=== PATIENT | female | born 1975 | race Hispanic/Latino ===

== ENCOUNTER 2021-03-23 17:22 | Inpatient (IN) | payer OTHER ==
[~2021-03-23] VITALS: Ht 154.9 cm; Wt 107.5 kg
[2021-03-23 17:59] LABS: BASOPHILS % (AUTO) 0.5 % (0.0-5.0); EOSINOPHILS % (AUTO) 1.3 % (0.0-8.0); LYMPHOCYTES % (AUTO) 18.9 % (21.0-51.0); MEAN CORPUSCULAR HGB CONC 32.1 g/dL (32.0-36.0); MEAN CORPUSCULAR VOLUME 84.1 fL (79-99); NEUTROPHILS % (AUTO) 72.3 % (40.0-77.0); PLATELET COUNT (AUTO) 335 K/uL (130-400); RED BLOOD CELL COUNT(AUTO) 4.52 MIL/uL (4.00-5.50); RED CELL DISTRIBUTION WIDTH 14.2 % (11.0-15.5); WHITE BLOOD COUNT (AUTO) 15.2 K/uL (4.8-10.8)
[2021-03-23] MEDS ORDERED: ONDANSETRON 4MG INJ IVP ONE (18:00)
[2021-03-23] MEDS ORDERED: MORPHINE 2 MG SYG IVP ONE (18:00)
[2021-03-23] MEDS ORDERED: FAMOTIDINE 20MG VIAL IV ONE (18:00)
[2021-03-23 18:01] LABS: APPEARANCE,URINE Clear (CLEAR); BILIRUBIN,URINE Negative (NEGATIVE); COLOR,URINE Yellow (YELLOW); GLUCOSE, URINE (UA) Negative (NEGATIVE); KETONES,URINE Negative (NEGATIVE); LEUKOCYTE ESTERASE ,URINE Trace (NEGATIVE); NITRATE,URINE Negative (NEGATIVE); OCCULT BLOOD,URINE Negative (NEGATIVE); PH,URINE 5.5 (5.0-8.0); PROTEIN,URINE Negative (NEGATIVE)
[2021-03-23 18:03] LABS: HCG,QUAL RESULT NEGATIVE (NEGATIVE)
[2021-03-23 18:10] LABS: CREATININE 0.9 mg/dL (0.5-1.5); POTASSIUM 3.9 mmol/L (3.5-5.1)
[2021-03-23 18:10] LABS: BACTERIA,URINE Few /HPF (None Seen); MUCUS,URINE Rare LPF (None Seen); SQUAMOUS EPITHELIAL CELL,UR Few /HPF (0-2)
[2021-03-23 18:19] LABS: ALBUMIN 3.3 g/dL (3.5-5.0); BILIRUBIN,TOTAL 0.2 mg/dL (0.2-1.0); TOTAL PROTEIN, SERUM 8.4 g/dL (6.0-8.3)
[2021-03-23] MEDS ORDERED: 0.9%NACL 100ML 100 ML ONE (18:42)
[2021-03-23] MEDS: ZOSYN 3.375GM +NS 50ML IV SCH (18:50)
[2021-03-23] MEDS: 0.9%NACL 1000ML 1,000 ML IV SCH ×2 (18:50→21:02)
[2021-03-23] MEDS ORDERED: HYDRALAZINE 20MG/ML VIAL IV PRN (19:30)
[2021-03-23] MEDS: FAMOTIDINE 20MG VIAL IV SCH (20:58)
[2021-03-23] MEDS: LACTATED RINGERS 1000ML 1,000 ML IV SCH (20:58)
[2021-03-23] MEDS ORDERED: MORPHINE 2 MG SYG IVP PRN (21:30)
[2021-03-23] MEDS ORDERED: CYCL5TAB PO (21:49)
[2021-03-23] MEDS ORDERED: BUSP30TA2 PO (21:49)
[2021-03-23] MEDS ORDERED: INSU200I4 SQ (21:49)
[2021-03-23] MEDS ORDERED: METF750T46 PO (21:49)
[2021-03-23] MEDS ORDERED: GABA600T10 PO (21:49)
[2021-03-23] MEDS ORDERED: SIMV40TA59 PO (21:49)
[2021-03-23] MEDS ORDERED: DICY20TA3 PO (21:49)
[2021-03-23] MEDS ORDERED: LAMO100T66 PO (21:49)
[2021-03-23] MEDS ORDERED: DULO60CA64 PO (21:49)
[2021-03-24 01:30] VITALS: BP 102/62
[2021-03-24] MEDS: ZOSYN 3.375GM +NS 50ML IV SCH ×3 (02:32→18:04)
[2021-03-24] MEDS: ONDANSETRON 4MG INJ IV PRN ×3 (02:46→21:16)
[2021-03-24 04:00] VITALS: BP 105/54
[2021-03-24] MEDS: LACTATED RINGERS 1000ML 1,000 ML IV SCH ×2 (04:57→10:14)
[2021-03-24] MEDS: INSULIN HUMULIN R 100 UNIT/ML 3ML SQ SCH ×4 (05:32→18:00)
[2021-03-24 08:00] VITALS: BP 108/58
[2021-03-24 09:16] LABS: BASOPHILS % (AUTO) 0.4 % (0.0-5.0); EOSINOPHILS % (AUTO) 1.8 % (0.0-8.0); HEMATOCRIT 31.8 % (36-48); LYMPHOCYTES % (AUTO) 22.6 % (21.0-51.0); MEAN CORPUSCULAR HEMOGLOBIN 26.9 pg (27.0-33.0); MEAN CORPUSCULAR HGB CONC 31.8 g/dL (32.0-36.0); MEAN CORPUSCULAR VOLUME 84.8 fL (79-99); MONOCYTES % (AUTO) 5.6 % (3.0-13.0); NEUTROPHILS % (AUTO) 68.7 % (40.0-77.0); PLATELET COUNT (AUTO) 260 K/uL (130-400); RED BLOOD CELL COUNT(AUTO) 3.75 MIL/uL (4.00-5.50); RED CELL DISTRIBUTION WIDTH 14.4 % (11.0-15.5); WHITE BLOOD COUNT (AUTO) 11.6 K/uL (4.8-10.8)
[2021-03-24 09:34] LABS: CREATININE 0.9 mg/dL (0.5-1.5); POTASSIUM 3.9 mmol/L (3.5-5.1)
[2021-03-24 09:43] LABS: ALBUMIN 2.8 g/dL (3.5-5.0); BILIRUBIN,TOTAL 0.2 mg/dL (0.2-1.0); TOTAL PROTEIN, SERUM 7.1 g/dL (6.0-8.3)
[2021-03-24] MEDS: MORPHINE 4 MG SYG IV PRN ×2 (09:58→12:23)
[2021-03-24] MEDS: FAMOTIDINE 20MG VIAL IV SCH ×2 (09:59→21:16)
[2021-03-24 11:43] VITALS: BP 109/51
[2021-03-24 16:00] VITALS: BP 93/50
[2021-03-24 20:00] VITALS: BP 116/58
[2021-03-25] VITALS (19 sets, daily range): BP systolic 94–133; BP diastolic 44–80
[2021-03-25] MEDS: LACTATED RINGERS 1000ML 1,000 ML IV SCH ×3 (01:30→21:11)
[2021-03-25] MEDS: ZOSYN 3.375GM +NS 50ML IV SCH ×3 (03:24→19:30)
[2021-03-25 05:43] LABS: MEAN CORPUSCULAR HEMOGLOBIN 26.5 pg (27.0-33.0); MEAN CORPUSCULAR HGB CONC 31.2 g/dL (32.0-36.0); MEAN CORPUSCULAR VOLUME 84.8 fL (79-99); RED BLOOD CELL COUNT(AUTO) 3.89 MIL/uL (4.00-5.50); RED CELL DISTRIBUTION WIDTH 14.2 % (11.0-15.5); WHITE BLOOD COUNT (AUTO) 9.8 K/uL (4.8-10.8)
[2021-03-25 06:28] LABS: ALBUMIN 2.8 g/dL (3.5-5.0); BILIRUBIN,TOTAL 0.3 mg/dL (0.2-1.0); CREATININE 0.8 mg/dL (0.5-1.5); POTASSIUM 3.7 mmol/L (3.5-5.1); TOTAL PROTEIN, SERUM 7.2 g/dL (6.0-8.3)
[2021-03-25] MEDS: FAMOTIDINE 20MG VIAL IV SCH ×2 (08:45→21:10)
[2021-03-25] MEDS: LAMOTRIGINE 100 MG TABLET PO SCH (09:00)
[2021-03-25] MEDS: BUSPIRONE HCL 5 MG TABLET PO SCH ×2 (09:00→21:10)
[2021-03-25] MEDS ORDERED: DICYCLOMINE HCL 20 MG TAB PO PRN (09:00)
[2021-03-25] MEDS: GABAPENTIN 300 MG CAPSULE PO SCH ×2 (09:00→21:11)
[2021-03-25] MEDS ORDERED: CYCLOBENZAPRINE HCL 10 MG TABLET PO PRN (09:00)
[2021-03-25] MEDS: INSULIN HUMULIN R 100 UNIT/ML 3ML SQ SCH ×3 (12:00→18:00)
[2021-03-25] MEDS ORDERED: MAGNESIUM CITRATE 296 ML SOLUTION PO SCH (15:00)
[2021-03-25] MEDS ORDERED: BISACODYL 5 MG TABLET.DR PO SCH (15:00)
[2021-03-25] MEDS ORDERED: LACTULOSE 20 GM/30 ML UDCUP PR SCH ×2 (15:00→17:00)
[2021-03-25] MEDS ORDERED: PEG 3350/NA SULF,BICARB,CL/KCL 4000 ML SOLN PO SCH (16:00)
[2021-03-25] MEDS: ONDANSETRON 4MG INJ IV PRN (17:32)
[2021-03-25] MEDS ORDERED: SIMVASTATIN 20 MG TABLET PO SCH (21:00)
[2021-03-25] MEDS ORDERED: MAGNESIUM CITRATE 296 ML SOLUTION PO ONE (21:30)
[2021-03-26] VITALS (21 sets, daily range): BP systolic 102–182; BP diastolic 53–83
[2021-03-26] MEDS: ZOSYN 3.375GM +NS 50ML IV SCH ×2 (02:51→13:50)
[2021-03-26 05:04] LABS: HEMATOCRIT 32.8 % (36-48); MEAN CORPUSCULAR HEMOGLOBIN 26.5 pg (27.0-33.0); MEAN CORPUSCULAR HGB CONC 31.4 g/dL (32.0-36.0); MEAN CORPUSCULAR VOLUME 84.3 fL (79-99); RED BLOOD CELL COUNT(AUTO) 3.89 MIL/uL (4.00-5.50); RED CELL DISTRIBUTION WIDTH 14.4 % (11.0-15.5); WHITE BLOOD COUNT (AUTO) 11.4 K/uL (4.8-10.8)
[2021-03-26 05:17] LABS: CREATININE 0.8 mg/dL (0.5-1.5); POTASSIUM 3.8 mmol/L (3.5-5.1)
[2021-03-26] MEDS: INSULIN HUMULIN R 100 UNIT/ML 3ML SQ SCH ×3 (05:27→12:00)
[2021-03-26] MEDS: LACTATED RINGERS 1000ML 1,000 ML IV SCH (07:30)
[2021-03-26] MEDS: FAMOTIDINE 20MG VIAL IV SCH (09:00)
[2021-03-26] MEDS ORDERED: FENTANYL CITRATE PF 50 MCG/1 ML 2ML VIAL ONE (10:55)
[2021-03-26] MEDS ORDERED: MIDAZOLAM HCL 1 MG/ML 2ML VIAL ONE (10:56)
[2021-03-26] MEDS: GABAPENTIN 300 MG CAPSULE PO SCH (13:22)
[2021-03-26] MEDS: BUSPIRONE HCL 5 MG TABLET PO SCH (13:22)
[2021-03-26] MEDS: LAMOTRIGINE 100 MG TABLET PO SCH (13:22)
[2021-03-26] MEDS: ONDANSETRON 4MG INJ IV PRN (13:23)
[2021-03-26] MEDS ORDERED: METOCLOPRAMIDE 5 MG TABLET PO SCH (16:00)
== END 2021-03-26 19:00 | disposition home or self-care (01) | DRG 445 ==
LOC: EDH 17:22 → EDHIP 19:16 → 3BH 03-24 01:20
PROVIDERS: ADMIT Hospitalist; ATTEND Hospitalist
PROC: 0DB98ZX Excision of Duodenum, Via Natural or Artificial Opening Endoscopic, Diagnostic (ICD-10-PCS; principal; 2021-03-25)
PROC: 0DB78ZX Excision of Stomach, Pylorus, Via Natural or Artificial Opening Endoscopic, Diagnostic (ICD-10-PCS; 2021-03-25)
PROC: 0DB68ZX Excision of Stomach, Via Natural or Artificial Opening Endoscopic, Diagnostic (ICD-10-PCS; 2021-03-25)
PROC: 0DJD8ZZ Inspection of Lower Intestinal Tract, Via Natural or Artificial Opening Endoscopic (ICD-10-PCS; 2021-03-26)
DX: K80.20 Calculus of gallbladder without cholecystitis without obstruction (principal); Z68.41 Body mass index [BMI] 40.0-44.9, adult; D72.829 Elevated white blood cell count, unspecified; K76.0 Fatty (change of) liver, not elsewhere classified; E66.01 Morbid (severe) obesity due to excess calories; E78.5 Hyperlipidemia, unspecified; Z20.822 Contact with and (suspected) exposure to COVID-19; F41.9 Anxiety disorder, unspecified; E78.00 Pure hypercholesterolemia, unspecified; J45.909 Unspecified asthma, uncomplicated; F43.10 Post-traumatic stress disorder, unspecified; F31.9 Bipolar disorder, unspecified; E11.43 Type 2 diabetes mellitus with diabetic autonomic (poly)neuropathy; K31.84 Gastroparesis; K64.0 First degree hemorrhoids; D50.9 Iron deficiency anemia, unspecified; K21.00 Gastro-esophageal reflux disease with esophagitis, without bleeding; K29.00 Acute gastritis without bleeding; I10 Essential (primary) hypertension; G40.909 Epilepsy, unspecified, not intractable, without status epilepticus; K59.00 Constipation, unspecified; Z79.4 Long term (current) use of insulin; Z87.11 Personal history of peptic ulcer disease; Z87.19 Personal history of other diseases of the digestive system; Z88.8 Allergy status to other drugs, medicaments and biological substances; Z82.3 Family history of stroke; Z83.3 Family history of diabetes mellitus; Z82.49 Family history of ischemic heart disease and other diseases of the circulatory system
CPT/HCPCS: 36415; 43239; 45378; 71045; 76705; 76856; 78226; 80048; 80053; 80061; 81001; 81025; 82607; 82728; 82948; 83540; 83605; 83690; 84145; 84484; 85025; 85027; 87635; 93005; 99152; 99291; A4606; A9537; G0378; J2250; J2270; J2405; J2543; J3010; J3490; J7030; J7120